=== PATIENT | female | born 1965 ===

== ENCOUNTER 2018-12-09 08:38 | Outpatient (CLI) | payer OTHER | END 2018-12-09 08:39 | disposition home or self-care (01) | LOC: C.CARD 08:38 ==

== ENCOUNTER 2018-12-31 09:06 | Outpatient (CLI) | payer OTHER | END 2018-12-31 09:07 | disposition home or self-care (01) | LOC: C.USIC 09:06 | DX: R10.2 Pelvic and perineal pain (principal) ==